=== PATIENT | female | born 1985 | race Caucasian/White ===

== ENCOUNTER → 2016-10-15 | Outpatient (CLI) | payer OTHER ==
[~2016-10-15] MED LIST: BRINTELLIX10 MG PO; MIDODRINE HCL5 MG PO; MIRALAX 119 GR119 GM PO; NORCO 5-325 TA1 EACH PO; POTASSIUM CHLO10 ME2 PO; PROVENTIL HFA 61 INH INH; SINGULAIR10 MG PO; TRINESSA TABLE1 EACH PO; VISTARIL25 MG PO
[2016-10-15 10:16] LABS: HEMOGLOBIN 11.8 gm/dl (12.3-15.3); RED BLOOD COUNT 3.98 M/UL (4.00-5.10); WHITE BLOOD COUNT 7.3 K/UL (4.5-11.0)
== END ==
LOC: OPSV2 09:08
PROVIDERS: Obstetrics & Gynecology
DX: Z01.812 Encounter for preprocedural laboratory examination (principal); R10.2 Pelvic and perineal pain; Z88.6 Allergy status to analgesic agent; Z88.8 Allergy status to other drugs, medicaments and biological substances
CPT/HCPCS: 36415; 81001; 85025

== ENCOUNTER → 2016-10-22 | Day surgery (SDC) | payer OTHER | END | disposition home or self-care (01) | LOC: OR 08:22 | PROVIDERS: Obstetrics & Gynecology | PROC: 0WJJ4ZZ Inspection of Pelvic Cavity, Percutaneous Endoscopic Approach (ICD-10-PCS; 2016-10-22) | PROC: 0WJG4ZZ Inspection of Peritoneal Cavity, Percutaneous Endoscopic Approach (ICD-10-PCS; principal; 2016-10-22 09:30) | DX: K59.39 Other megacolon (principal); K59.00 Constipation, unspecified; R10.2 Pelvic and perineal pain; N94.10 Unspecified dyspareunia; M19.90 Unspecified osteoarthritis, unspecified site; Z88.8 Allergy status to other drugs, medicaments and biological substances; Z79.899 Other long term (current) drug therapy | CPT/HCPCS: 84703; J2250; J2405; J2710; J2795; J3010; J7120 ==